=== PATIENT | female | born 1985 | race Caucasian/White ===

== ENCOUNTER 2017-03-10 18:28 | Inpatient (IN) | payer MEDICAID ==
[2017-03-10 20:45] LABS: ADD UMIC NO; UR ASCORBIC ACID NEGATIVE (NEGATIVE); UR BILIRUBIN (Dip) NEGATIVE (NEGATIVE); UR BLOOD (Dip) NEGATIVE (NEGATIVE); UR CLARITY CLEAR (CLEAR); UR COLOR STRAW (YELLOW); UR GLUCOSE (Dip) NEGATIVE (NEGATIVE); UR KETONES (Dip) NEGATIVE (NEGATIVE); UR LEUKOCYTE ESTERASE (Dip) NEGATIVE Leu/ul (NEGATIVE); UR NITRITE (Dip) NEGATIVE (NEGATIVE); UR SPECIFIC GRAVITY (Dip) 1.004 (1.003-1.030); UR TOTAL PROTEIN (Dip) NEGATIVE (NEGATIVE); UR UROBILINOGEN (Dip) NEGATIVE (NEGATIVE)
[2017-03-10] MEDS: LACTATED RINGER'S 1,000 ML IV (23:48)
[2017-03-10] MEDS: MAGNESIUM SULFATE 4 GM/100 ML 100 ML IV (23:51)
[2017-03-10] MEDS: BETAMET NA PHOS/AC(6 MG/ML) 5ML INJ IM (23:55)
[2017-03-11] MEDS: MAGNESIUM SULFATE 20 GM/500 ML 500 ML IV ×2 (00:09→09:14)
[2017-03-11 08:29] LABS: MAGNESIUM 3.8 mg/dl (1.7-2.5)
[2017-03-11] MEDS: LACTATED RINGER'S 1,000 ML IV (11:10)
[2017-03-11 12:44] LABS: MAGNESIUM 3.2 mg/dl (1.7-2.5)
[2017-03-11] MEDS: NIFEdipine 10 MG CAP PO ×2 (17:42→23:49)
[2017-03-11] MEDS: BETAMET NA PHOS/AC(6 MG/ML) 5ML INJ IM (23:48)
[2017-03-12] MEDS: LACTATED RINGER'S 1,000 ML IV (01:14)
[2017-03-12] MEDS: NIFEdipine 10 MG CAP PO (05:56)
== END 2017-03-12 09:35 | disposition home or self-care (01) | DRG 778 ==
LOC: OBT 18:28 → L-D 18:30 → PP1 03-11 00:20 → L-D 18:34
DX: O60.03 Preterm labor without delivery, third trimester (principal); O26.873 Cervical shortening, third trimester; Z3A.34 34 weeks gestation of pregnancy
CPT/HCPCS: 36415; 76815; 76817; 76818; 81003; 83735; 87086

== ENCOUNTER 2017-03-17 18:41 | Outpatient (CLI) | payer MEDICAID ==
[2017-03-17 20:26] LABS: ADD UMIC NO; UR ASCORBIC ACID NEGATIVE (NEGATIVE); UR BILIRUBIN (Dip) NEGATIVE (NEGATIVE); UR BLOOD (Dip) NEGATIVE (NEGATIVE); UR CLARITY CLEAR (CLEAR); UR COLOR YELLOW (YELLOW); UR GLUCOSE (Dip) NEGATIVE (NEGATIVE); UR KETONES (Dip) NEGATIVE (NEGATIVE); UR LEUKOCYTE ESTERASE (Dip) NEGATIVE Leu/ul (NEGATIVE); UR NITRITE (Dip) NEGATIVE (NEGATIVE); UR SPECIFIC GRAVITY (Dip) 1.005 (1.003-1.030); UR TOTAL PROTEIN (Dip) NEGATIVE (NEGATIVE); UR UROBILINOGEN (Dip) NEGATIVE (NEGATIVE)
== END 2017-03-17 21:34 | disposition home or self-care (01) ==
LOC: OBT 18:41 → L-D 18:43 → OBT 21:34
DX: O76 Abnormality in fetal heart rate and rhythm complicating labor and delivery (principal); Z3A.35 35 weeks gestation of pregnancy
CPT/HCPCS: 76818; 81003

== ENCOUNTER 2017-03-23 11:29 | Outpatient (CLI) | payer MEDICAID | END 2017-03-23 13:05 | disposition home or self-care (01) | LOC: OBT 11:29 → L-D 11:29 → OBT 13:05 | DX: O36.8330 Maternal care for abnormalities of the fetal heart rate or rhythm, third trimester, not applicable or unspecified (principal); O62.9 Abnormality of forces of labor, unspecified; O26.893 Other specified pregnancy related conditions, third trimester; R51 Headache; Z3A.36 36 weeks gestation of pregnancy | CPT/HCPCS: Z7500 ==

== ENCOUNTER 2017-03-28 00:23 | Inpatient (IN) | payer MEDICAID ==
[2017-03-28] MEDS: LACTATED RINGER'S 1,000 ML IV ×5 (01:50→18:11)
[2017-03-28] MEDS ORDERED: LACTATED RINGER'S 500 ML IV (01:54)
[2017-03-28 03:41] LABS: ADD MAN DIFF? NO
[2017-03-28 03:49] LABS: INR 0.89; PROTIME 12.1 Sec (11.9-14.9); PT RATIO 0.9
[2017-03-28 03:50] LABS: PARTIAL THROMBOPLASTIN TIME 28.1 Sec (25.0-35.0)
[2017-03-28] MEDS ORDERED: METHYLERGONOVINE 0.2 MG INJ IM ×2 (04:00→06:30)
[2017-03-28] MEDS ORDERED: CEFAZOLIN 2 GM/50 ML (PMX) 50 ML IV (04:00)
[2017-03-28] MEDS ORDERED: OXYTOCIN 30 UNITS/LR 500 ML IV ×3 (04:00→05:29)
[2017-03-28] MEDS ORDERED: MISOPROSTOL 200 MCG TAB PR ×2 (04:00→06:30)
[2017-03-28] MEDS ORDERED: CARBOPROST 250 MCG INJ IM ×2 (04:00→06:30)
[2017-03-28 04:03] LABS: BASOPHILS % 0.3 % (0.0-2.0); EOSINOPHILS # 0.1 10^3/ul (0.0-0.5); EOSINOPHILS % 1.3 % (0.0-7.0); HEMATOCRIT 37.7 % (37.0-47.0); HEMOGLOBIN 13.2 g/dl (12.0-16.0); LYMPHOCYTES # 2.7 10^3/ul (0.8-2.9); LYMPHOCYTES % 29.5 % (15.0-51.0); MEAN CORPUSCULAR HEMOGLOBIN 32.3 pg (29.0-33.0); MEAN CORPUSCULAR VOLUME 92.2 fl (82.0-101.0); MEAN PLATELET VOLUME 11.1 fl (7.4-10.4); MONOCYTE # 0.5 10^3/ul (0.3-0.9); MONOCYTES % 5.4 % (0.0-11.0); NEUTROPHIL # 5.8 10^3/ul (1.6-7.5); NEUTROPHILS % 63.2 % (39.0-77.0); PLATELET COUNT 196 10^3/UL (140-415); RED BLOOD COUNT 4.09 10^6/ul (4.20-5.40); RED CELL DISTRIBUTION WIDTH 12.5 % (11.5-14.5)
[2017-03-28 04:03] LABS: WHITE BLOOD COUNT 9.1 10^3/ul (4.8-10.8)
[2017-03-28] MEDS: FAMOTIDINE 20 MG INJ IV (04:05)
[2017-03-28] MEDS: CITRIC ACID/SODIUM CITRATE 15 ML CUP PO (04:06)
[2017-03-28] MEDS: METOCLOPRAMIDE 10 MG INJ IV (04:06)
[2017-03-28] MEDS ORDERED: FENTAnyl 50 MCG/ML VIAL (04:54)
[2017-03-28] MEDS ORDERED: morphine SULFATE/PF (10 MG/10 ML) INJ (04:54)
[2017-03-28 05:04] LABS: HEPATITIS B SURFACE ANTIGEN NEGATIVE (NEGATIVE)
[2017-03-28] MEDS ORDERED: PHENYLephrine (100 MCG/ML) 5ML SYG ×2 (05:05→05:37)
[2017-03-28] MEDS ORDERED: EPHEDrine SULFATE 50 MG/5 ML SYG (05:13)
[2017-03-28] MEDS ORDERED: ONDANSETRON 4 MG INJ (05:31)
[2017-03-28] MEDS: OXYTOCIN 30 UNITS/LR 500 ML IV (06:03)
[2017-03-28] MEDS ORDERED: KETOROLAC 30 MG INJ IV (06:30)
[2017-03-28] MEDS ORDERED: NALOXONE (0.4 MG/ML) INJ IV (06:30)
[2017-03-28] MEDS ORDERED: NALBUPHINE HCL (10 MG/1 ML) INJ IV ×2 (06:30)
[2017-03-28] MEDS ORDERED: FENTAnyl 50 MCG/ML VIAL IV (06:30)
[2017-03-28] MEDS ORDERED: MEPERIDINE 25 MG INJ IV (06:30)
[2017-03-28] MEDS ORDERED: HYDROmorphONE 0.5 MG/0.5 ML SYG IV ×2 (06:30)
[2017-03-28] MEDS ORDERED: ONDANSETRON 4 MG INJ IV ×2 (06:30)
[2017-03-28] MEDS ORDERED: ZOLPIDEM 5 MG TAB PO (06:30)
[2017-03-28] MEDS ORDERED: HYDROmorphONE (0.2 MG/ML) 10ML SYG IV (06:30)
[2017-03-28] MEDS ORDERED: PROCHLORPERAZINE 10 MG INJ IV (06:30)
[2017-03-28] MEDS ORDERED: SENNA/DOCUSATE NA (8.6MG/50MG) TAB PO (06:30)
[2017-03-28] MEDS ORDERED: OXYCODONE/ACETAMINOPHEN (5/325) TAB PO (06:30)
[2017-03-28] MEDS: IBUPROFEN 800 MG TAB PO (14:09)
[2017-03-28] MEDS: KETOROLAC 30 MG INJ IV (20:39)
[2017-03-28] MEDS: LANOLIN 7 GM TUBE TOP (20:40)
[2017-03-28 21:53] LABS: RAPID PLASMA REAGIN NONREACTIVE (NR)
[2017-03-29] MEDS: LACTATED RINGER'S 1,000 ML IV (02:05)
[2017-03-29] MEDS: KETOROLAC 30 MG INJ IV (04:00)
[2017-03-29 08:58] LABS: ADD MAN DIFF? NO
[2017-03-29 09:04] LABS: WHITE BLOOD COUNT 9.3 10^3/ul (4.8-10.8)
[2017-03-29 09:04] LABS: BASOPHILS % 0.2 % (0.0-2.0); EOSINOPHILS # 0.1 10^3/ul (0.0-0.5); EOSINOPHILS % 1.5 % (0.0-7.0); HEMATOCRIT 32.7 % (37.0-47.0); HEMOGLOBIN 11.2 g/dl (12.0-16.0); LYMPHOCYTES # 1.6 10^3/ul (0.8-2.9); LYMPHOCYTES % 17.3 % (15.0-51.0); MEAN CORPUSCULAR HEMOGLOBIN 31.9 pg (29.0-33.0); MEAN CORPUSCULAR HGB CONC 34.3 g/dl (32.0-37.0); MEAN CORPUSCULAR VOLUME 93.2 fl (82.0-101.0); MEAN PLATELET VOLUME 10.9 fl (7.4-10.4); MONOCYTE # 0.5 10^3/ul (0.3-0.9); MONOCYTES % 5.4 % (0.0-11.0); NEUTROPHILS % 75.2 % (39.0-77.0); PLATELET COUNT 166 10^3/UL (140-415); RED BLOOD COUNT 3.51 10^6/ul (4.20-5.40)
[2017-03-29] MEDS: OXYCODONE/ACETAMINOPHEN (5/325) TAB PO (10:30)
[2017-03-29] MEDS: IBUPROFEN 800 MG TAB PO ×2 (13:21→21:54)
[2017-03-29] MEDS ORDERED: BISACODYL 10 MG SUPP PR (15:30)
[2017-03-29] MEDS: MAGNESIUM HYDROXIDE 30ML CUP PO (20:45)
[2017-03-29] MEDS: SENNA TAB PO (20:45)
[2017-03-30] MEDS: IBUPROFEN 800 MG TAB PO ×3 (05:51→21:43)
[2017-03-30] MEDS: OXYCODONE/ACETAMINOPHEN (5/325) TAB PO (12:36)
[2017-03-30] MEDS: LANOLIN 7 GM TUBE TOP (22:50)
[2017-03-31] MEDS: IBUPROFEN 800 MG TAB PO ×2 (05:41→13:00)
[2017-03-31] MEDS: DIPHTH/TET/ACEL PERTUSS (ADULT) 0.5 ML VIAL IM* (09:00)
[2017-03-31] MEDS: MAGNESIUM HYDROXIDE 30ML CUP PO (09:37)
[2017-03-31] MEDS: SENNA TAB PO (09:37)
== END 2017-03-31 13:55 | disposition home or self-care (01) | DRG 766 ==
LOC: OBT 00:23 → L-D 00:23 → OBT 03:27 → L-D 03:28 → PP1 09:47
PROVIDERS: Obstetrics & Gynecology
PROC: 10D00Z1 Extraction of Products of Conception, Low, Open Approach (ICD-10-PCS; principal; 2017-03-28)
DX: O34.211 Maternal care for low transverse scar from previous cesarean delivery (principal); Z37.0 Single live birth; Z3A.37 37 weeks gestation of pregnancy
CPT/HCPCS: 36415; 85025; 85610; 85730; 86592; 86850; 86900; 86901; 87340; 94760; 96360; 99464

== ENCOUNTER 2017-04-12 13:00 | Inpatient (IN) | payer MEDICAID ==
[2017-04-12] MEDS: SOD CHLORIDE 0.9% 1,000 ML IV ×2 (14:45→18:16)
[2017-04-12] MEDS: morphine 4 MG/ML VIAL IV (14:45)
[2017-04-12] MEDS: ONDANSETRON 4 MG INJ IV (14:45)
[2017-04-12 15:06] LABS: ADD MAN DIFF? NO
[2017-04-12 15:12] LABS: BASOPHIL # 0.1 10^3/ul (0.0-0.1); BASOPHILS % 0.5 % (0.0-2.0); EOSINOPHILS # 0.3 10^3/ul (0.0-0.5); EOSINOPHILS % 1.8 % (0.0-7.0); HEMATOCRIT 42.9 % (37.0-47.0); HEMOGLOBIN 14.5 g/dl (12.0-16.0); LYMPHOCYTES # 2.4 10^3/ul (0.8-2.9); LYMPHOCYTES % 14.2 % (15.0-51.0); MEAN CORPUSCULAR HEMOGLOBIN 31.4 pg (29.0-33.0); MEAN CORPUSCULAR HGB CONC 33.8 g/dl (32.0-37.0); MEAN CORPUSCULAR VOLUME 92.9 fl (82.0-101.0); MEAN PLATELET VOLUME 10.5 fl (7.4-10.4); MONOCYTE # 0.8 10^3/ul (0.3-0.9); MONOCYTES % 4.6 % (0.0-11.0); NEUTROPHIL # 13.2 10^3/ul (1.6-7.5); NEUTROPHILS % 78.4 % (39.0-77.0); PLATELET COUNT 304 10^3/UL (140-415); RED BLOOD COUNT 4.62 10^6/ul (4.20-5.40); RED CELL DISTRIBUTION WIDTH 11.6 % (11.5-14.5)
[2017-04-12 15:12] LABS: WHITE BLOOD COUNT 16.9 10^3/ul (4.8-10.8)
[2017-04-12 15:46] LABS: ADD UMIC YES; UR ASCORBIC ACID NEGATIVE (NEGATIVE); UR BILIRUBIN (Dip) NEGATIVE (NEGATIVE); UR BLOOD (Dip) 2+ mg/dL (NEGATIVE); UR CLARITY SLIGHTLY CLOUDY (CLEAR); UR COLOR YELLOW (YELLOW); UR GLUCOSE (Dip) NEGATIVE (NEGATIVE); UR KETONES (Dip) NEGATIVE (NEGATIVE); UR LEUKOCYTE ESTERASE (Dip) 3+ Leu/ul (NEGATIVE); UR MUCUS FEW /HPF (NONE SEEN); UR NITRITE (Dip) NEGATIVE (NEGATIVE); UR RBC 10 /HPF (0-5); UR SPECIFIC GRAVITY (Dip) 1.013 (1.003-1.030); UR TOTAL PROTEIN (Dip) NEGATIVE (NEGATIVE); UR UROBILINOGEN (Dip) NEGATIVE (NEGATIVE); UR WBC 92 /HPF (0-5)
[2017-04-12 15:49] LABS: ALANINE AMINOTRANSFERASE 56 IU/L (13-69); ALBUMIN 4.2 g/dl (3.3-4.9); ALBUMIN/GLOBULIN RATIO 1.02; ALKALINE PHOSPHATASE 172 IU/L (42-121); ANION GAP 19 (8-16); ASPARTATE AMINO TRANSFERASE 40 IU/L (15-46); BILIRUBIN,INDIRECT 0.2 mg/dl (0-1.1); BILIRUBIN,TOTAL 0.2 mg/dl (0.2-1.3); BLOOD UREA NITROGEN 13 mg/dl (7-20); CALCIUM 9.9 mg/dl (8.4-10.2); CARBON DIOXIDE 27 mmol/L (21-31); CHLORIDE 102 mmol/L (97-110); CREATININE 0.59 mg/dl (0.44-1.00); GLUCOSE 103 mg/dl (70-220); LIPASE 57 U/L (23-300); POTASSIUM 4.1 mmol/L (3.5-5.1); SODIUM 144 mmol/L (135-144); TOTAL PROTEIN 8.3 g/dl (6.1-8.1)
[2017-04-12] MEDS: HYDROmorphONE 1 MG/ML SYG IV (16:20)
[2017-04-12] MEDS: PIPER-TAZO 3.375 GM IV (PMX) 100 ML IVPB ×2 (17:26→23:29)
[2017-04-12] MEDS ORDERED: ONDANSETRON 4 MG INJ IV ×4 (18:30→21:30)
[2017-04-12] MEDS ORDERED: ACETAMINOPHEN 325 MG TAB PO ×2 (18:30→19:00)
[2017-04-12] MEDS ORDERED: NACL 0.9% 3 ML SYG IV (19:00)
[2017-04-12] MEDS ORDERED: BISACODYL (EC) 5 MG TAB PO (19:00)
[2017-04-12] MEDS ORDERED: morphine 2 MG INJ IV (19:00)
[2017-04-12] MEDS ORDERED: LORAZEPAM 2 MG INJ IV (19:00)
[2017-04-12] MEDS ORDERED: PROPOFOL 20 ML (20:13)
[2017-04-12] MEDS ORDERED: KETOROLAC 30 MG INJ (20:13)
[2017-04-12] MEDS ORDERED: ONDANSETRON 4 MG INJ (20:13)
[2017-04-12] MEDS ORDERED: ROCURONIUM 50 MG INJ (20:13)
[2017-04-12] MEDS ORDERED: MIDAZOLAM 1 MG/ML 2 ML INJ (20:13)
[2017-04-12] MEDS ORDERED: METOCLOPRAMIDE 10 MG INJ (20:14)
[2017-04-12] MEDS ORDERED: ROPIVACAINE 0.5 % 30 ML VIAL (20:14)
[2017-04-12] MEDS ORDERED: PHENYLephrine (100 MCG/ML) 5ML SYG (20:44)
[2017-04-12] MEDS: BUPIVACAINE 0.25% (MPF) 30 ML INJ (20:53)
[2017-04-12] MEDS: LIDOCAINE 1%/EPI 30 ML INJ (20:53)
[2017-04-12] MEDS ORDERED: DIPHENHYDRAMINE 50 MG INJ IV (21:00)
[2017-04-12] MEDS ORDERED: MEPERIDINE 25 MG INJ IV (21:00)
[2017-04-12] MEDS ORDERED: morphine (1 MG/ML) 10ML SYRINGE IV ×3 (21:00)
[2017-04-12] MEDS ORDERED: GLYCOPYRROLATE 0.4 MG INJ (21:20)
[2017-04-12] MEDS ORDERED: NEOSTIGMINE 3 MG/3 ML SYRINGE (21:20)
[2017-04-12] MEDS ORDERED: EPHEDrine SULFATE 50 MG/5 ML SYG (21:40)
[2017-04-12] MEDS: EPHEDrine SULFATE 50 MG/5 ML SYG IV (22:27)
[2017-04-12] MEDS: DEXTROSE 5%-0.45% NACL 1,000 ML IV (23:29)
[2017-04-12] MEDS: HYDROCODONE/APAP (5/325) TAB PO (23:29)
[2017-04-13 00:14] LABS: LACTIC ACID 1.9 mmol/L (0.5-2.0)
[2017-04-13] MEDS: DEXTROSE 5%-0.45% NACL 1,000 ML IV ×2 (04:34→11:35)
[2017-04-13] MEDS: PIPER-TAZO 3.375 GM IV (PMX) 100 ML IVPB ×2 (04:50→11:35)
[2017-04-13] MEDS: PANTOPRAZOLE (EC) 40 MG TAB PO (05:06)
[2017-04-13 05:51] LABS: ADD MAN DIFF? NO
[2017-04-13 05:56] LABS: WHITE BLOOD COUNT 10.5 10^3/ul (4.8-10.8)
[2017-04-13 05:56] LABS: BASOPHILS % 0.4 % (0.0-2.0); EOSINOPHILS # 0.1 10^3/ul (0.0-0.5); EOSINOPHILS % 1.2 % (0.0-7.0); HEMATOCRIT 34.6 % (37.0-47.0); HEMOGLOBIN 11.8 g/dl (12.0-16.0); LYMPHOCYTES # 1.9 10^3/ul (0.8-2.9); LYMPHOCYTES % 18.2 % (15.0-51.0); MEAN CORPUSCULAR HEMOGLOBIN 31.6 pg (29.0-33.0); MEAN CORPUSCULAR HGB CONC 34.1 g/dl (32.0-37.0); MEAN CORPUSCULAR VOLUME 92.8 fl (82.0-101.0); MEAN PLATELET VOLUME 10.4 fl (7.4-10.4); MONOCYTE # 0.5 10^3/ul (0.3-0.9); MONOCYTES % 5.2 % (0.0-11.0); NEUTROPHIL # 7.8 10^3/ul (1.6-7.5); NEUTROPHILS % 74.7 % (39.0-77.0); PLATELET COUNT 266 10^3/UL (140-415); RED BLOOD COUNT 3.73 10^6/ul (4.20-5.40); RED CELL DISTRIBUTION WIDTH 11.7 % (11.5-14.5)
[2017-04-13 06:43] LABS: ALANINE AMINOTRANSFERASE 51 IU/L (13-69); ALBUMIN 3.2 g/dl (3.3-4.9); ALBUMIN/GLOBULIN RATIO 1.03; ALKALINE PHOSPHATASE 124 IU/L (42-121); ANION GAP 13 (8-16); ASPARTATE AMINO TRANSFERASE 40 IU/L (15-46); BILIRUBIN,INDIRECT 0.4 mg/dl (0-1.1); BILIRUBIN,TOTAL 0.4 mg/dl (0.2-1.3); BLOOD UREA NITROGEN 5 mg/dl (7-20); CALCIUM 8.4 mg/dl (8.4-10.2); CARBON DIOXIDE 27 mmol/L (21-31); CHLORIDE 107 mmol/L (97-110); CREATININE 0.56 mg/dl (0.44-1.00); GLUCOSE 109 mg/dl (70-220); MAGNESIUM 1.6 mg/dl (1.7-2.5); POTASSIUM 3.8 mmol/L (3.5-5.1); SODIUM 143 mmol/L (135-144); TOTAL PROTEIN 6.3 g/dl (6.1-8.1)
[2017-04-13] MEDS: HYDROCODONE/APAP (5/325) TAB PO (11:40)
[2017-04-13] MEDS ORDERED: NITROFURANTOIN (SR) 100 MG CAP PO (14:30)
== END 2017-04-13 14:24 | disposition home or self-care (01) | DRG 769 ==
LOC: FTE 13:00 → REC 18:16 → MS1 23:00
PROC: 0DTJ4ZZ Resection of Appendix, Percutaneous Endoscopic Approach (ICD-10-PCS; principal; 2017-04-12 20:00)
DX: O99.63 Diseases of the digestive system complicating the puerperium (principal); K76.0 Fatty (change of) liver, not elsewhere classified; K35.80 Unspecified acute appendicitis; O86.20 Urinary tract infection following delivery, unspecified; K43.9 Ventral hernia without obstruction or gangrene; O99.215 Obesity complicating the puerperium; E66.9 Obesity, unspecified; Z68.29 Body mass index [BMI] 29.0-29.9, adult
CPT/HCPCS: 74177; 76705; 76856; 80053; 81001; 83605; 83690; 83735; 85025; 87040; 88304

== ENCOUNTER 2017-05-28 19:53 | Emergency (ER) | payer MEDICAID ==
[2017-05-28 20:42] LABS: ADD MAN DIFF? NO
[2017-05-28 20:46] LABS: BASOPHIL # 0.1 10^3/ul (0.0-0.1); BASOPHILS % 0.5 % (0.0-2.0); EOSINOPHILS # 0.4 10^3/ul (0.0-0.5); EOSINOPHILS % 3.3 % (0.0-7.0); HEMATOCRIT 40.2 % (37.0-47.0); HEMOGLOBIN 13.7 g/dl (12.0-16.0); LYMPHOCYTES # 4.4 10^3/ul (0.8-2.9); LYMPHOCYTES % 39.9 % (15.0-51.0); MEAN CORPUSCULAR HEMOGLOBIN 30.4 pg (29.0-33.0); MEAN CORPUSCULAR HGB CONC 34.1 g/dl (32.0-37.0); MEAN CORPUSCULAR VOLUME 89.3 fl (82.0-101.0); MEAN PLATELET VOLUME 10.3 fl (7.4-10.4); MONOCYTE # 0.6 10^3/ul (0.3-0.9); MONOCYTES % 5.6 % (0.0-11.0); NEUTROPHIL # 5.5 10^3/ul (1.6-7.5); NEUTROPHILS % 50.3 % (39.0-77.0); PLATELET COUNT 300 10^3/UL (140-415); RED CELL DISTRIBUTION WIDTH 11.4 % (11.5-14.5)
[2017-05-28 20:49] LABS: ADD UMIC NO; UR ASCORBIC ACID NEGATIVE (NEGATIVE); UR BILIRUBIN (Dip) NEGATIVE (NEGATIVE); UR BLOOD (Dip) NEGATIVE (NEGATIVE); UR CLARITY CLEAR (CLEAR); UR COLOR STRAW (YELLOW); UR GLUCOSE (Dip) NEGATIVE (NEGATIVE); UR KETONES (Dip) NEGATIVE (NEGATIVE); UR LEUKOCYTE ESTERASE (Dip) NEGATIVE Leu/ul (NEGATIVE); UR NITRITE (Dip) NEGATIVE (NEGATIVE); UR SPECIFIC GRAVITY (Dip) 1.005 (1.003-1.030); UR TOTAL PROTEIN (Dip) NEGATIVE (NEGATIVE); UR UROBILINOGEN (Dip) NEGATIVE (NEGATIVE)
[2017-05-28] MEDS: SOD CHLORIDE 0.9% 500 ML IV (21:01)
[2017-05-28] MEDS: morphine 4 MG/ML VIAL IV ×2 (21:02→23:59)
[2017-05-28] MEDS: FAMOTIDINE 20 MG TAB PO (21:02)
[2017-05-28] MEDS: METOCLOPRAMIDE 10 MG INJ IV (21:02)
[2017-05-28 21:03] LABS: ALANINE AMINOTRANSFERASE 99 IU/L (13-69); ALBUMIN 4.5 g/dl (3.3-4.9); ALBUMIN/GLOBULIN RATIO 1.09; ALKALINE PHOSPHATASE 134 IU/L (42-121); ANION GAP 17 (8-16); ASPARTATE AMINO TRANSFERASE 48 IU/L (15-46); BILIRUBIN,INDIRECT 0.2 mg/dl (0-1.1); BILIRUBIN,TOTAL 0.2 mg/dl (0.2-1.3); BLOOD UREA NITROGEN 14 mg/dl (7-20); CALCIUM 9.8 mg/dl (8.4-10.2); CARBON DIOXIDE 28 mmol/L (21-31); CHLORIDE 101 mmol/L (97-110); GLUCOSE 106 mg/dl (70-220); LIPASE 104 U/L (23-300); POTASSIUM 4.3 mmol/L (3.5-5.1); SODIUM 142 mmol/L (135-144); TOTAL PROTEIN 8.6 g/dl (6.1-8.1)
== END 2017-05-29 00:22 | disposition home or self-care (01) ==
LOC: E/R 05-29 00:22
DX: K80.20 Calculus of gallbladder without cholecystitis without obstruction (principal)
CPT/HCPCS: 36415; 76705; 80053; 81003; 81025; 83690; 85025; 96374; 96375; 96376; 99285-25